=== PATIENT | female | born 1950 | race Caucasian/White ===

== ENCOUNTER → 2018-03-04 11:58 | Outpatient (CLI) | payer MEDICARE, SELFPAY ==
[2018-03-04 14:12] LABS: Absolute Lymphocyte Count 1.81 X10^3/ul (0.83-4.51); Absolute Neutrophil Count 3.6 X10^3/uL (2.0-7.7); Basophil# 0.02 X10^3/uL; Basophil% 0.3 % (0-1); Eosinophil# 0.12 X10^3/uL; Hematocrit 36.8 % (37-47); Hemoglobin 11.9 g/dl (12.0-15.0); Lymphocyte # 1.81 X10^3/ul (4.0); Lymphocyte % 30.6 % (19-41); Mean Corp Hgb Conc 32.3 g/gl (32-36); Mean Corpuscular Hgb 32.6 pg (27.0-32.0); Mean Corpuscular Volume 100.8 fL (81-99); Mean Platelet Vol. 10.4 fl (6.2-12.0); Monocyte# 0.39 X10^3/uL; Monocyte% 6.6 % (0-10); Neutrophil # 3.57 X10^3/uL (2.7-7.7); Neutrophil % 60.3 % (47-70); Platelet Count 231 K/mm3 (150-450); RBC Distribution Width CV 13.7 % (11.6-14.6); Red Blood Count 3.65 M/mm3 (4.2-5.4); White Blood Count 5.9 K/mm3 (4.4-11.0)
[2018-03-04 14:13] LABS: POSITIVE COUNT NO; POSITIVE DIFFERENTIAL NO; POSITIVE MORPHOLOGY NO
[2018-03-04 14:20] LABS: CRP 4.25 mg/L (0.0-3.0)
[2018-03-04 14:21] LABS: Erythrocyte Sedimentation Rate 10 mm/hr (0-30)
== END ==
PROVIDERS: Visit Provider Specialist
DX: S72.142D Displaced intertrochanteric fracture of left femur, subsequent encounter for closed fracture with routine healing (principal)
CPT/HCPCS: 36415; 85025; 85652; 86140

== ENCOUNTER 2018-03-30 12:09 | Inpatient (IN) | payer MEDICARE, SELFPAY ==
[2018-03-16 15:22] VITALS: BP 149/74; PULSE 63; RESP 16; TEMP 36.9; O2SAT 100; BMI 27.8
--- NOTE | 2018-03-16 15:47 | SDCEKG_ITS ---
Test Reason : Blood Pressure : / mmHG Vent. Rate : 065 BPM Atrial Rate : 065 BPM P-R Int : 192 ms QRS Dur : 100 ms QT Int : 422 ms P-R-T Axes : 062 -11 049 degrees QTc Int : 438 ms Normal sinus rhythm Low voltage QRS Incomplete right bundle branch block Borderline ECG Confirmed by RICHIE HITCHCOCK, ZULY ([id number]), assignment editor VIGNESH SMITH ([id number]) on 03/18/2018 1:49:16 PM Referred By: Jesus Hernandez Confirmed By:ZULY QUIROZ MD
[2018-03-16 16:40] LABS: Anion Gap 7 (5-15); BUN 15 mg/dL (7-18); BUN/Creat Ratio 16.8 RATIO (10-20); Calcium,Total 9.4 mg/dL (8.5-10.1); Chloride 103 mmol/L (98-107); Creatinine, Serum 0.89 mg/dL (0.55-1.02); EST Glomerular Filtration Rate 66 mL/min (>60); Est Glom Filt Rate - Afr Amer 80 mL/min (>60); Estimated Creatinine Clearance 53.68 ml/min; Glucose 84 mg/dL (74-106); Potassium 3.7 mmol/L (3.5-5.1); Sodium Level 139 mmol/L (136-145)
--- NOTE | 2018-03-23 13:04 | CASEMGMT ---
SW called pt at home as pt is scheduled for a left hip replacement on 03/30/[address] Hernandez. Pt lives home w/ in a one story home. Pt is independent with most ADL's, uses a cane, her does help her with taking a shower. Pt has a bench in the shower, she also does have a walker at home. Pt anticipates returning home w/the assist of her at discharge, and go to outpt PT at [facility]. Pt states her can take her to appointments. Pt asked about home health care for therapy. SW explained that if she can get out to therapy and has a way to get there, her surgeon would likely prefer for her to go to outpt therapy. SW explained that if pt is having a difficult time or once she is here after surgery it seems like it will be too difficult to get to outside appts, SW/CM can look into home health care for pt. Pt states understanding. SW/CM to follow up w/pt once here, postoperatively, to confirm discharge plan or make any changes that are needed. ANNA Grajeda, PHOSPHORUS PROCESSING SUPERVISOR
[2018-03-30] VITALS (10 sets, daily range): BP systolic 90–143; BP diastolic 43–89; PULSE 72–115; RESP 14–18; TEMP 36–36.8; O2SAT 93–100; BMI 27.8; BMI 27.6
[2018-03-30] MEDS: oxyCODONE HCl Cr 10 MG Tablet PO (13:08)
[2018-03-30] MEDS: Acetaminophen 500 MG Tablet 1000 MG PO ×2 (13:09→21:19)
[2018-03-30] MEDS: Celecoxib 200 MG Capsule 400 MG PO (13:09)
[2018-03-30] MEDS: Cefazolin 2 GM in 0.9% Normal Saline 100 ML IV (14:41)
--- NOTE | 2018-03-30 17:08 | PCM.OPRPT ---
Report of Operation Date of Procedure: 03/30/18 Pre-Operative Diagnosis: Left intertrochanteric malunion with secondary osteoarthritis of the hip Post-Operative Diagnosis: Left intertrochanteric malunion with secondary osteoarthritis of the hip Surgery/Procedure Performed:: Conversion of previous hip surgery to left total hip replacement Description of Surgical Findings:: Stable hip with equal leg lengths appliquer zigzag: Jeff Mohr Type of Anesthesia:: Spinal Anesthesiologist: Leon Burgos Special Medications: 600 mg clindamycin, 1 g TXA at incision, 1 g TXA closure, 10 mg Decadron, joint cocktail (5 mg Duramorph, 30 mL of 0.5% Ropivicaine, 1000 units of epinephrine, 30 mg of Toradol) Specimen's removed: 3 separate specimens were sent to microbiology Estimated Blood Loss (mL): 300 Fluids Replaced: 1200 mL crystalloid Description of Procedure: Findings: Adequate reduction with stability of the hip and equal leg lengths measured intraoperatively. Components used: 1. Whipple judaism modular conical 16mm by 155 mm stem, Kory judaism modular 19 mm +10 mm cone body 2. Kory trident 52 mm acetabular shell 2 screws 3. Whipple X3 polyethylene liner, for MDM 42E 4. Kory Biolox delta 28 mm, 0 mm neck femoral head 5. Whipple MDM liner alpha code E Brief history operative indications: 67-year-old female who had a intertrochanteric fracture with subsequent malunion and osteoarthritis of the hip with developed leg length discrepancy. Risks and benefits were discussed with the patient which included but were not limited to blood loss, DVTs, PEs, infection, neurovascular damage, and dislocation. In light of all this patient did agree to proceed with a version to left total hip arthroplasty. Procedure: On the date of procedure the patient's L hip was marked in the preoperative area. Patient was then taken back to the operating room where anesthesia assumed control of the C-spine and airway and administered anesthetic. Patient was transferred to the operating table and placed in the lateral decubitus position with the affected hip up. The patient was secured in the bed with the lateral positioners and leg lengths were checked. The L lower extremity was then prepped out in a sterile fashion using chlorhexidine while the surgeon scrubbed. Upon reentering the room the L lower extremity was draped in the standard orthopedic fashion and the incision was marked. A timeout was called and everyone agreed upon the side, the site, the procedure be performed, antibiotics given, and patient's identity. At this time incision was made through skin, subcutaneous tissue, and fat down to fascia. The fascia was then incised and a Charley retractor was placed. First we worked distally to identify the plate. The vastus lateralis was lifted anteriorly. The 3 screws in the plate were identified and removed. The machine screw was removed from the lag screw. Plate was then lifted off the bone and removed. Lag screw was then removed. Culture was taken from around the plate as well as in the femoral head. The soft tissue was then cleared from the posterior external rotators and the piriformis was identified. Piriformis was taken down and tagged. The remainder of the short external rotators were taken down. Capsulotomy was made and the posterior capsule was tagged. The retractors were then placed inside the capsule. The femoral neck was identified and a cleanup cut was made. At this time a power corkscrew was used to remove the femoral head. At this time all bony debris was removed from the acetabulum. Attention was then turned to the femur where the proximal femur was appropriately exposed using a persaud retractor. The gambling box person was used to remove the lateral bone. Canal finder was used to verify the canal. The proximal femoral femur was then sequentially reamed to a size 16 x 155 reamer which had an appropriate fit. The stem was then impacted into place. We then reamed the proximal portion of the femur to a 19 mm body. Our attention was then directed to the acetabulum and the anterior retractor was placed and a Gelpi was used to retract the posterior capsule superiorly. All soft tissue debris was removed from the pulvinar and labrum of the joint. The acetabulum was then sequentially reamed to 51 millimeters. At this time a and 52 mm Whipple titanium cup was opened and impacted into place. Once it was securely fastened our attention was again turned towards the femur and the the 19 mm +10 mm body was impacted into place in the appropriate anteversion. Appropriate head with 0 mm offset was trialed, in order to obtain the appropriate leg length we sequentially trialed reducing and dislocating the hip throughout the process to find the appropriate length and stability. The hip was properly reduced using traction and external rotation. Stability was checked with the appropriate amount of shuck, no impingement with external rotation, and stable at 90? flexion and 90? internal rotation. Leg lengths were checked and were found to be equal on the table. Once the hip was determined to be stable the trial components were dislocated and to bone screws were placed in the safe zone of the acetabular component. Once it was securely fastened down the MDM liner was placed and security was verified. The proximal femur was again exposed and the components were removed from the wound. The final components were verified and opened. The wound was copiously irrigated out with normal saline. The acetabulum was checked for any residual debris. The final components were placed and impacted. Traction and external rotation were again used to reduce the hip. After adequate reduction the hip remained stable with appropriate leg lengths. The wound was then copiously irrigated with normal saline once more, and hemostasis was obtained. The sciatic nerve was carefully examined no injury was noted. The posterior capsule and piriformis were not repairable previous contractures malunion. Closure was then done using #1 Vicryl to close the fascia. A 2-0 Vicryl interrupted sutures were used to close the subcutaneous skin. Skin mala were used for final skin closure. A sterile dressing was placed. Patient was awakened by anesthesia and transferred to the [facility]. Patient was then transferred to the PACU for recovery. Postoperative plan: Patient will get 24 hours postop antibiotics. Patient will get in-house physical therapy and will be weight-bear as tolerated. Patient will follow up in office in 2 weeks for a wound check and x-rays. During the course of the procedure the physician customer service assistant played a vital role. His intimate knowledge of my steps in the procedure aided in safe and expedient completion of the procedure. The PA played a vital rolls in positioning particularly in obtaining the appropriate lateral decubitus positioning. The PA was also vital in the retraction of soft tissues during the exposure and especially the femoral work as this is a vital part of the procedure to prevent complications and fractures. The PA was also vital and protecting soft tissues during times of bony cuts and reaming. He also played a vital role in closure with my direct supervision. The PA was also important during reduction and dislocation of the joint and trials intraoperatively. - Complications None - Admit VTE Documentation VTE Present on Admission: No VTE Mechan Device Prophylaxis: SCD's, Thigh High JORDYN Hose VTE Pharm Prophylaxis ordered?: Yes
--- NOTE | 2018-03-30 17:16 | OP.PCM_ITS ---
Report of Operation Date of Procedure: 03/30/18 Pre-Operative Diagnosis: Left intertrochanteric malunion with secondary osteoarthritis of the hip Post-Operative Diagnosis: Left intertrochanteric malunion with secondary osteoarthritis of the hip Surgery/Procedure Performed:: Conversion of previous hip surgery to left total hip replacement Description of Surgical Findings:: Stable hip with equal leg lengths air quality chemist: Jeff Mohr Type of Anesthesia:: Spinal Anesthesiologist: Leon Burgos Special Medications: 600 mg clindamycin, 1 g TXA at incision, 1 g TXA closure, 10 mg Decadron, joint cocktail (5 mg Duramorph, 30 mL of 0.5% Ropivicaine, 1000 units of epinephrine, 30 mg of Toradol) Specimen's removed: 3 separate specimens were sent to microbiology Estimated Blood Loss (mL): 300 Fluids Replaced: 1200 mL crystalloid Description of Procedure: Findings: Adequate reduction with stability of the hip and equal leg lengths measured intraoperatively. Components used: 1. Cumming bahai modular conical 16mm by 155 mm stem, Kory bahai modular 19 mm +10 mm cone body 2. Kory trident 52 mm acetabular shell 2 screws 3. Cumming X3 polyethylene liner, for MDM 42E 4. Kory Biolox delta 28 mm, 0 mm neck femoral head 5. Cumming MDM liner alpha code E Brief history operative indications: 67-year-old female who had a intertrochanteric fracture with subsequent malunion and osteoarthritis of the hip with developed leg length discrepancy. Risks and benefits were discussed with the patient which included but were not limited to blood loss, DVTs, PEs, infection, neurovascular damage, and dislocation. In light of all this patient did agree to proceed with a version to left total hip arthroplasty. Procedure: On the date of procedure the patient's L hip was marked in the preoperative area. Patient was then taken back to the operating room where anesthesia assumed control of the C-spine and airway and administered anesthetic. Patient was transferred to the operating table and placed in the lateral decubitus position with the affected hip up. The patient was secured in the bed with the lateral positioners and leg lengths were checked. The L lower extremity was then prepped out in a sterile fashion using chlorhexidine while the surgeon scrubbed. Upon reentering the room the L lower extremity was draped in the standard orthopedic fashion and the incision was marked. A timeout was called and everyone agreed upon the side, the site, the procedure be performed, antibiotics given, and patient's identity. At this time incision was made through skin, subcutaneous tissue, and fat down to fascia. The fascia was then incised and a Charley retractor was placed. First we worked distally to identify the plate. The vastus lateralis was lifted anteriorly. The 3 screws in the plate were identified and removed. The machine screw was removed from the lag screw. Plate was then lifted off the bone and removed. Lag screw was then removed. Culture was taken from around the plate as well as in the femoral head. The soft tissue was then cleared from the posterior external rotators and the piriformis was identified. Piriformis was taken down and tagged. The remainder of the short external rotators were taken down. Capsulotomy was made and the posterior capsule was tagged. The retractors were then placed inside the capsule. The femoral neck was identified and a cleanup cut was made. At this time a power corkscrew was used to remove the femoral head. At this time all bony debris was removed from the acetabulum. Attention was then turned to the femur where the proximal femur was appropriately exposed using a persaud retractor. The box maker paperboard was used to remove the lateral bone. Canal finder was used to verify the canal. The proximal femoral femur was then sequentially reamed to a size 16 x 155 reamer which had an appropriate fit. The stem was then impacted into place. We then reamed the proximal portion of the femur to a 19 mm body. Our attention was then directed to the acetabulum and the anterior retractor was placed and a Gelpi was used to retract the posterior capsule superiorly. All soft tissue debris was removed from the pulvinar and labrum of the joint. The acetabulum was then sequentially reamed to 51 millimeters. At this time a and 52 mm Cumming titanium cup was opened and impacted into place. Once it was securely fastened our attention was again turned towards the femur and the the 19 mm +10 mm body was impacted into place in the appropriate anteversion. Appropriate head with 0 mm offset was trialed, in order to obtain the appropriate leg length we sequentially trialed reducing and dislocating the hip throughout the process to find the appropriate length and stability. The hip was properly reduced using traction and external rotation. Stability was checked with the appropriate amount of shuck, no impingement with external rotation, and stable at 90? flexion and 90? internal rotation. Leg lengths were checked and were found to be equal on the table. Once the hip was determined to be stable the trial components were dislocated and to bone screws were placed in the safe zone of the acetabular component. Once it was securely fastened down the MDM liner was placed and security was verified. The proximal femur was again exposed and the components were removed from the wound. The final components were verified and opened. The wound was copiously irrigated out with normal saline. The acetabulum was checked for any residual debris. The final components were placed and impacted. Traction and external rotation were again used to reduce the hip. After adequate reduction the hip remained stable with appropriate leg lengths. The wound was then copiously irrigated with normal saline once more, and hemostasis was obtained. The sciatic nerve was carefully examined no injury was noted. The posterior capsule and piriformis were not repairable previous contractures malunion. Closure was then done using #1 Vicryl to close the fascia. A 2-0 Vicryl interrupted sutures were used to close the subcutaneous skin. Skin mala were used for final skin closure. A sterile dressing was placed. Patient was awakened by anesthesia and transferred to the [facility]. Patient was then transferred to the PACU for recovery. Postoperative plan: Patient will get 24 hours postop antibiotics. Patient will get in-house physical therapy and will be weight-bear as tolerated. Patient will follow up in office in 2 weeks for a wound check and x-rays. During the course of the procedure the physician investigative assistant played a vital role. His intimate knowledge of my steps in the procedure aided in safe and expedient completion of the procedure. The PA played a vital rolls in positioning particularly in obtaining the appropriate lateral decubitus positioning. The PA was also vital in the retraction of soft tissues during the exposure and especially the femoral work as this is a vital part of the procedure to prevent complications and fractures. The PA was also vital and protecting soft tissues during times of bony cuts and reaming. He also played a vital role in closure with my direct supervision. The PA was also important during reduction and dislocation of the joint and trials intraoperatively. - Complications None - Admit VTE Documentation VTE Present on Admission: No VTE Mechan Device Prophylaxis: SCD's, Thigh High JORDYN Hose VTE Pharm Prophylaxis ordered?: Yes
--- NOTE | 2018-03-30 18:05 | RAD_ITS ---
STUDY: X-RAY - PELVIS AND LEFT HIP REASON FOR EXAM: Female, 67 years old. Postop TECHNIQUE: Radiological exam, hip, unilateral, with pelvis when performed; 2 or 3 views. COMPARISON: 09/04/2016. FINDINGS: There is a non-specific bowel gas pattern. Postsurgical changes soft tissues adjacent to the left hip. Normal bilateral iliac wings, sacroiliac joints and visualized sacrum. Iliac crests are cut off from evaluation. Normal bilateral superior and inferior pubic rami. Normal pubic symphysis. Normal bilateral ischial tuberosities. Left hip prosthesis in place without loosening or breakage. No fracture. RAD/Hip Min 2 Views (Portable) IMPRESSION: Revision of left hip hardware. Left hip prosthesis in place. No fracture. Electronically Signed: Oleksandr Moya DO at 19:15 EDT , Service support ,
[2018-03-30] MEDS: Scopolamine 1mg/72hr Patch 1 PATCH TD (18:18)
[2018-03-30] MEDS: Ondansetron 4 MG/2 ML Vial IV (19:20)
--- NOTE | 2018-03-30 19:59 | PCM.PN.BLA ---
Progress Note Postop exam: Patient doing well left lower extremity examination 5 out of 5 dorsiflexion EHL and plantar flexion. Sensations intact light touch SP/DP/tibial nerve distributions. We will reassess in the [facility]:
--- NOTE | 2018-03-30 20:00 | PN_ITS ---
Progress Note Postop exam: Patient doing well left lower extremity examination 5 out of 5 dorsiflexion EHL and plantar flexion. Sensations intact light touch SP/DP/ tibial nerve distributions. We will reassess in the [facility]:
[2018-03-30] MEDS: Lactated Ringers 1,000 ML 125 ML IV (20:21)
[2018-03-30] MEDS: Baclofen 10 MG Tablet PO (21:18)
[2018-03-30] MEDS: Senna/Docusate Sodium 1 Tablet 2 TABLET PO (21:19)
[2018-03-30] MEDS: Gabapentin 100 MG Capsule PO (21:20)
[2018-03-30] MEDS: Atorvastatin Calcium 10 MG Tablet PO (21:20)
[2018-03-30] MEDS: Clindamycin 600 MG/50 ML BAG 100 MG IV (21:21)
--- NOTE | 2018-03-30 23:57 | PCM.PN.HOSP ---
Subjective: Consultation Reason/Chief Complaint: Left intertrochanteric malunion with secondary osteoarthritis of the hip for medical management consultation The patient is a 67 y/o F w/ PMHx: Chronic Normocytic Anemia, Neuropathy, HTN, HLD, GERD, Parkinson's disease who presents to the [facility] ED on 03/30/18 w/ history of ongoing left hip discomfort and debility w/ left intertrochanteric malunion with secondary osteoarthritis of the hip for planned L THR per Dr. Hernandez, conversion from previous hip surgery w/ prior history of fall w/ L hip fracture in 2016. Patient katie-operative had only noted mildly low BP but otherwise no acute events. Per Dr. Hernandez was evaluated post-operatively and noted LLE with appropriate flexion and extension, intact sensation. Social Hx: Lives with her spouse, former tobacco use, denies EtOH or elicit drug usage. PSurgHx: Cholecystectomy, mastectomy, carpal tunnel release to the right upper extremity, left hip ORIF. Family Hx: Father with history of arthritis, cancer, hypertension. Mother with history of cancer, hypertension, stroke. Admission Review of Systems: CONSTITUTIONAL: No weight loss, fever, chills. + weakness or fatigue. HEENT: Eyes: No visual loss, blurred vision, double vision or yellow sclerae. Ears, Nose, Throat: No hearing loss, sneezing, congestion, runny nose or sore throat. SKIN: No rash or itching, lesions, wounds. CARDIOVASCULAR: No chest pain, chest pressure or chest discomfort, palpitations, edema, orthopnea, syncopal events. RESPIRATORY: No shortness of breath, cough or sputum, wheezing, hemoptysis. GASTROINTESTINAL: No anorexia, nausea, vomiting or diarrhea, abdominal pain, melena, BRBPR. GENITOURINARY: No dysuria, frequency, urgency or retention. NEUROLOGICAL: Parkinson's disease history. No headache, dizziness, syncope, paralysis, ataxia, numbness or tingling in the extremities, change in bowel or bladder control, seizure. MUSCULOSKELETAL: + L hip pain. HEMATOLOGIC: + anemia, bleeding or bruising. LYMPHATICS: No enlarged nodes. No history of splenectomy. PSYCHIATRIC: + history of depression or anxiety. ENDOCRINOLOGIC: No reports of sweating, cold or heat intolerance. No polyuria or polydipsia. ALLERGIES: No history of asthma, hives, eczema or rhinitis. Objective: Physical Examination: General: awakens to stimuli, alert, fatigued, oriented x 3 and cooperative, seated upright in bed in no apparent distress. Skin: normal color, turgor, no icterus, cyanosis, L hip dressing in place, ice in place. HEENT: AT/NC, EOMI, PERRLA, mildly dry MM, no carotid bruits or JVD noted. Lungs: CTA bilaterally, moderate effort, mild decrease BL bases, no rales, ronchi or wheezing. Heart: Regular rate and rhythm; no gallop, rub audible. Abdomen: soft, NTTP, ND, normal BS, no HSM. Extremities: no cyanosis, clubbing, s/p L THR, see skin. Neurological: patient awake, alert, oriented x 3; cognitive function intact; pupils equally reactive to light and accomodation; cranial nerves II-XII grossly normal, moving all 4 extremities although limited LLE given recent OR L THR, strength according severely globally decreased. Psychiatric: affect appears fatigued, mildly flat, no acute evidence of depressive or anxiety feelings. Vitals/I&O's: Vital Signs Temp Pulse Resp BP Pulse Ox 97.6 F L 97 18 90/43 L 93 03/30/18 23:28 03/30/18 23:28 03/30/18 23:28 03/30/18 23:28 03/30/18 23:28 Oxygen Delivery Method Room Air Weight: 169 lb 15.622 oz Body Mass Index (BMI) 27.6 Intake and Output for Last 24 Hours 03/28/18 03/29/18 03/30/18 23:59 23:59 23:59 Intake Total 1300 / 1300 Balance 1300 / 1300 Current Medications Acetaminophen (Tylenol) 1,000 mg PO Q8 [facility] Last Admin: 03/30/18 21:19 Dose: 1,000 mg Atorvastatin Calcium (Lipitor) 10 mg PO QHS [facility] Last Admin: 03/30/18 21:20 Dose: 10 mg Baclofen (Lioresal) 10 mg PO QHS [facility] Last Admin: 03/30/18 21:18 Dose: 10 mg Cholecalciferol (Vitamin D) 500 unit PO DAILY [facility] Cyanocobalamin (Vitamin B12) 500 mcg PO DAILY@0800 [facility] Duloxetine HCl (Cymbalta) 60 mg PO DAILY [facility] Estradiol (Estrace (G)) 1 mg PO DAILY [facility] Famotidine (Pepcid) 20 mg PO DAILY [facility] Gabapentin (Neurontin) 100 mg PO TID [facility] Last Admin: 03/30/18 21:20 Dose: 100 mg Hydralazine HCl (Apresoline Iv) 10 mg IV Q4H PRN PRN PRN Reason: SBP > 160 Hydrochlorothiazide (Hydrochlorothiazide) 12.5 mg PO DAILY [facility] Lactated Ringer's () 1,000 mls @ 125 mls/hr IV .Q8H [facility] Last Admin: 03/30/18 20:21 Dose: 125 mls/hr Clindamycin Phosphate (Cleocin) 600 mg in 50 mls @ 100 mls/hr IV Q6H [facility] Stop: 03/31/18 09:59 Sodium Chloride () 1,000 mls @ 100 mls/hr IV .Q10H [facility] Stop: 03/31/18 09:44 Sodium Chloride () 500 mls @ 999 mls/hr IV .Q31M [facility] Stop: 03/31/18 00:26 Ketorolac Tromethamine (Toradol) 15 mg IV Q6H PRN PRN PRN Reason: MILD-MOD PAIN (1-5/10) Lisinopril (Zestril) 10 mg PO DAILY [facility] Loratadine (Claritin) 10 mg PO DAILY PRN PRN Reason: ALLERGIES Morphine Sulfate () 2 - 4 mg IV Q2H PRN PRN PRN Reason: SEVERE PAIN (6-10/10) Morphine Sulfate () 2 - 4 mg IV Q2H PRN PRN PRN Reason: SEVERE PAIN (6-10/10) Nutritional Formula (Lactose Free) (Ensure Clear) 120 ml PO TIDCM [facility] Last Admin: 03/30/18 20:58 Dose: Not Given Ondansetron HCl (Zofran) 4 mg IV Q8H PRN PRN PRN Reason: NAUSEA Last Admin: 03/30/18 19:20 Dose: 4 mg Oxycodone HCl (Oxyir) 5 - 10 mg PO Q4H PRN PRN PRN Reason: MOD-SEVERE PAIN (4-10/10) Pantoprazole Sodium (Protonix) 20 mg PO DAILY [facility] Promethazine HCl (Phenergan) 12.5 mg IM Q6H PRN PRN; Protocol PRN Reason: NAUSEA/VOMITING Rivaroxaban (Xarelto) 10 mg PO DAILY@0600 [facility] Senna/Docusate Sodium (Senokot-S, Katie-Colace) 2 tablet PO BID [facility] Last Admin: 03/30/18 21:19 Dose: 2 tablet Sodium Chloride () 5 - 30 ml IV UD PRN PRN Reason: SALINE FLUSH Tolterodine Tartrate (Detrol La) 2 mg PO DAILY [facility] Medical Necessity - Tobacco Use Smoking Status: Former smoker Tobacco Use: Cigarettes Assessment/Plan All Active Problems Thrombocytopenia (Acute) Constipation (Acute) Hypokalemia (Acute) Hypomagnesemia (Acute) Anemia due to blood loss, acute (Acute) Fracture of left tibial plateau (Acute) Fibula fracture (Acute) Thermal burn (Acute) Closed left hip fracture (Acute) The patient is a 67 y/o F w/ PMHx: Chronic Normocytic Anemia, Neuropathy, HTN, HLD, GERD, Parkinson's disease who presents to the [facility] ED on 03/30/18 w/ history of ongoing left hip discomfort and debility w/ left intertrochanteric malunion with secondary osteoarthritis of the hip for planned L THR per Dr. Hernandez, conversion from previous hip surgery w/ prior history of fall w/ L hip fracture in 2016. (1) Severe Osteoarthritis, left intertrochanteric malunion with secondary osteoarthritis of the hip: Admitted per Dr. Hernandez, 03/30/[address] Hernandez, conversion from previous hip surgery, post-operative pain management, bowel regimen, DVT Prophylaxis, PT/OT/CM per Orthopedic surgery discretion. (2) Hypotension, Post-operatively: BP stable low, will place hold parameters on her HTN regimen, given bolus NS 500 cc x 1 and initiate low MIVFs x 1L. Fall precautions. Additional Co-morbidities: Parkinson's disease: Will continue home sinemet regimen, fall precautions, therapies ordered per Orthopedic surgery. Chronic normocytic anemia: Preoperative hemoglobin 11.9, postoperative hemoglobin to be obtained in a.m. Hypertension: Continue home regimen including hydrochlorothiazide, lisinopril w/ hold parameters given mildly low BP, PRN hydralazine. Hyperlipidemia: Continue home statin regimen. Anxiety and Depression: Continue home Cymbalta regimen. DVT prophylaxis: SCDs, Xarelto per orthopedic surgery discretion. Code Visit Inpatient E&M: 90711 [facility] Hosp L3
[2018-03-31] VITALS (11 sets, daily range): BP systolic 83–114; BP diastolic 40–62; PULSE 86–110; RESP 16–18; TEMP 36.5–37.1; O2SAT 90–100
[2018-03-31] MEDS: Ketorolac 15 MG/ML Vial IV (00:20)
[2018-03-31] MEDS: 0.9% Normal Saline 1,000 ML 100 ML IV (01:39)
[2018-03-31] MEDS: oxyCODONE 5 MG Tablet PO (02:01)
[2018-03-31] MEDS: Clindamycin 600 MG/50 ML BAG 100 MG IV ×2 (03:54→10:07)
[2018-03-31] MEDS: Acetaminophen 500 MG Tablet 1000 MG PO ×3 (06:01→21:07)
[2018-03-31] MEDS: Rivaroxaban 10 MG Tablet PO (06:01)
[2018-03-31] MEDS: Gabapentin 100 MG Capsule PO ×3 (06:01→21:07)
[2018-03-31] MEDS: Carbidopa/Levodopa 25/100 Tablet PO ×3 (06:09→16:04)
[2018-03-31 06:22] LABS: Anion Gap 8 (5-15); BUN 22 mg/dL (7-18); BUN/Creat Ratio 19.3 RATIO (10-20); Chloride 112 mmol/L (98-107); Creatinine, Serum 1.14 mg/dL (0.55-1.02); EST Glomerular Filtration Rate 50 mL/min (>60); Est Glom Filt Rate - Afr Amer 61 mL/min (>60); Estimated Creatinine Clearance 41.91 ml/min; Glucose 94 mg/dL (74-106); Potassium 4.5 mmol/L (3.5-5.1); Sodium Level 144 mmol/L (136-145)
[2018-03-31 06:32] LABS: Hemoglobin 8.9 g/dl (12.0-15.0); Mean Corp Hgb Conc 31.8 g/gl (32-36); Mean Corpuscular Hgb 31.4 pg (27.0-32.0); Mean Corpuscular Volume 98.9 fL (81-99); Mean Platelet Vol. 9.7 fl (6.2-12.0); Platelet Count 178 K/mm3 (150-450); RBC Distribution Width CV 13.8 % (11.6-14.6); RBC Distribution Width SD 50.1 fl (35.1-43.9); Red Blood Count 2.83 M/mm3 (4.2-5.4); White Blood Count 7.4 K/mm3 (4.4-11.0)
[2018-03-31 06:37] LABS: Scan Indicated on CBC? Y/N NO
--- NOTE | 2018-03-31 06:48 | PN.ORTHO_ITS ---
Subjective: The patient was resting in bed upon examination. Patient denies any chest pain , shortness of breath, dizziness, lightheadedness, nausea or vomiting, or calf pain. Pain is controlled on medications. Patient states she feels very fatigued/tired. Nursing states overnight she has been given 2 boluses of IV fluids due to hypotension. Dr. Doshi has been involved helping manage. Objective: Vital signs stable and afebrile. Patient is able to plantarflex and dorsiflex actively. Sensation is intact to light touch to saphenous, sural, superficial and deep peroneal, and tibial distribution. Dressing is clean dry and intact. Negative Homans bilaterally, negative signs and symptoms of DVT. - Physical Exam General: Alert, Oriented x3, Cooperative Vital Signs Temp Pulse Resp BP Pulse Ox 97.8 F 89 18 91/46 L 99 03/31/18 05:48 03/31/18 05:48 03/31/18 05:48 03/31/18 05:48 03/31/18 05:48 Oxygen Flow Rate (L/min) 1 Oxygen Delivery Method Nasal Cannula Weight: 77.1 kg Body Mass Index (BMI) 27.6 Intake and Output for Last 24 Hours 03/29/18 03/30/18 03/31/18 23:59 23:59 23:59 Intake Total 1300 / 1300 3108 / 3108 Output Total 400 / 400 Balance 1300 / 1300 2708 / 2708 Laboratory Tests Past 24 Hrs 03/31/18 03/31/18 05:44 05:44 WBC 7.4 RBC 2.83 L Hgb 8.9 L Hct 28.0 L MCV 98.9 MCH 31.4 MCHC 31.8 L RDW 13.8 RDW Differential 50.1 H Plt Count 178 MPV 9.7 Sodium 144 Potassium 4.5 Chloride 112 H Carbon Dioxide 24.0 Anion Gap 8 BUN 22 H Creatinine 1.14 H Estim Creat Clear Calc 41.91 Est GFR (MDRD) Af Amer 61 Est GFR (MDRD) Non-Af 50 L BUN/Creatinine Ratio 19.3 Glucose 94 Calcium 7.0 L Medical Necessity - Tobacco Use Smoking Status: Former smoker Tobacco Use: Cigarettes Assessment/Plan All Active Problems Thrombocytopenia (Acute) Constipation (Acute) Hypokalemia (Acute) Hypomagnesemia (Acute) Anemia due to blood loss, acute (Acute) Fracture of left tibial plateau (Acute) Fibula fracture (Acute) Thermal burn (Acute) Closed left hip fracture (Acute) 1. S/P conversion of previous hip surgery to a left total hip arthroplasty POD #1 2. Continue Pain Medications: Tylenol and OxyIR 3. DVT Prophylaxis: Xarelto 4. PT/OT: Weightbearing as tolerated 5. H & H: 8.9/28.0, patient currently is hypotensive and feeling fatigue/ tired. Patient denies any dizziness or lightheadedness. 6. Encouraged Incentive Spirometry 7. Continue postoperative medical management per medicine 8. Hypotensive: Currently 91/46, patient has received 2 boluses overnight of IV fluids. Patient has also been straight cathed. Medications are being managed by medicine. Patient has not been out of bed due to blood pressure. 8. Disposition: Anticipate discharge home with outpatient physical therapy when medically stable.
--- NOTE | 2018-03-31 09:56 | PCM.PN.HOSP ---
Subjective: Nauseated this AM. Vitals/I&O's: Vital Signs Temp Pulse Resp BP Pulse Ox 36.6 C 89 18 91/46 L 99 03/31/18 05:48 03/31/18 05:48 03/31/18 05:48 03/31/18 05:48 03/31/18 05:48 Oxygen Flow Rate (L/min) 2 Oxygen Delivery Method Nasal Cannula Weight: 77.1 kg Body Mass Index (BMI) 27.6 Intake and Output for Last 24 Hours 03/29/18 03/30/18 03/31/18 23:59 23:59 23:59 Intake Total 1300 / 1300 3108 / 3108 Output Total 400 / 400 Balance 1300 / 1300 2708 / 2708 General: Alert, Cooperative, No apparent distress HEENT: Atraumatic, Normocephalic Neck: No Nodes, Thyroid Normal Size and Texture Lungs: Clear to auscultation, Normal air movement, No rhonchi, No wheeze Cardiovascular: Regular rate, Regular Rhythm, Normal S1, Normal S2, No murmurs Abdomen: Bowel Sounds Present, Soft, Non Tender, Non-Distended Extremities: No edema, No Calf Tenderness Laboratory Results 03/31/18 05:44: WBC 7.4, RBC 2.83 L, Hgb 8.9 L, Hct 28.0 L, MCV 98.9, MCH 31.4, MCHC 31.8 L, RDW 13.8, RDW Differential 50.1 H, Plt Count 178, MPV 9.7 03/31/18 05:44: Sodium 144, Potassium 4.5, Chloride 112 H, Carbon Dioxide 24.0, Anion Gap 8, BUN 22 H, Creatinine 1.14 H, Estim Creat Clear Calc 41.91, Est GFR (MDRD) Af Amer 61, Est GFR (MDRD) Non-Af 50 L, BUN/Creatinine Ratio 19.3, Glucose 94, Calcium 7.0 L Current Medications Acetaminophen (Tylenol) 1,000 mg PO Q8 [facility] Last Admin: 03/31/18 06:01 Dose: 1,000 mg Atorvastatin Calcium (Lipitor) 10 mg PO QHS [facility] Last Admin: 03/30/18 21:20 Dose: 10 mg Baclofen (Lioresal) 10 mg PO QHS [facility] Last Admin: 03/30/18 21:18 Dose: 10 mg Carbidopa/Levodopa (Sinemet) 0.5 tablet PO TIDAC [facility] Last Admin: 03/31/18 06:09 Dose: 0.5 tablet Cholecalciferol (Vitamin D) 500 unit PO DAILY [facility] Cyanocobalamin (Vitamin B12) 500 mcg PO DAILY@0800 [facility] Duloxetine HCl (Cymbalta) 60 mg PO DAILY [facility] Estradiol (Estrace (G)) 1 mg PO DAILY [facility] Famotidine (Pepcid) 20 mg PO DAILY [facility] Gabapentin (Neurontin) 100 mg PO TID [facility] Last Admin: 03/31/18 06:01 Dose: 100 mg Hydralazine HCl (Apresoline Iv) 10 mg IV Q4H PRN PRN PRN Reason: SBP > 160 Hydrochlorothiazide (Hydrochlorothiazide) 12.5 mg PO DAILY [facility] Lactated Ringer's () 1,000 mls @ 125 mls/hr IV .Q8H [facility] Last Admin: 03/31/18 03:59 Dose: Not Given Clindamycin Phosphate (Cleocin) 600 mg in 50 mls @ 100 mls/hr IV Q6H [facility] Stop: 03/31/18 09:59 Last Admin: 03/31/18 03:54 Dose: 100 mls/hr Sodium Chloride () 1,000 mls @ 100 mls/hr IV .Q10H [facility] Stop: 03/31/18 10:25 Last Admin: 03/31/18 01:39 Dose: 100 mls/hr Ketorolac Tromethamine (Toradol) 15 mg IV Q6H PRN PRN PRN Reason: MILD-MOD PAIN (1-5/10) Last Admin: 03/31/18 00:20 Dose: 15 mg Lisinopril (Zestril) 10 mg PO DAILY [facility] Loratadine (Claritin) 10 mg PO DAILY PRN PRN Reason: ALLERGIES Morphine Sulfate () 2 - 4 mg IV Q2H PRN PRN PRN Reason: SEVERE PAIN (6-10/10) Morphine Sulfate () 2 - 4 mg IV Q2H PRN PRN PRN Reason: SEVERE PAIN (6-10/10) Nutritional Formula (Lactose Free) (Ensure Clear) 120 ml PO TIDCM [facility] Last Admin: 03/30/18 20:58 Dose: Not Given Ondansetron HCl (Zofran) 4 mg IV Q8H PRN PRN PRN Reason: NAUSEA Last Admin: 03/30/18 19:20 Dose: 4 mg Oxycodone HCl (Oxyir) 5 - 10 mg PO Q4H PRN PRN PRN Reason: MOD-SEVERE PAIN (4-10/10) Last Admin: 03/31/18 02:01 Dose: 5 mg Pantoprazole Sodium (Protonix) 20 mg PO DAILY [facility] Promethazine HCl (Phenergan) 12.5 mg IM Q6H PRN PRN; Protocol PRN Reason: NAUSEA/VOMITING Rivaroxaban (Xarelto) 10 mg PO DAILY@0600 [facility] Last Admin: 03/31/18 06:01 Dose: 10 mg Senna/Docusate Sodium (Senokot-S, Soledad-Colace) 2 tablet PO BID [facility] Last Admin: 03/30/18 21:19 Dose: 2 tablet Sodium Chloride () 5 - 30 ml IV UD PRN PRN Reason: SALINE FLUSH Tolterodine Tartrate (Detrol La) 2 mg PO DAILY [facility] Medical Necessity - Tobacco Use Smoking Status: Former smoker Tobacco Use: Cigarettes Assessment/Plan All Active Problems Thrombocytopenia (Acute) Constipation (Acute) Hypokalemia (Acute) Hypomagnesemia (Acute) Anemia due to blood loss, acute (Acute) Fracture of left tibial plateau (Acute) Fibula fracture (Acute) Thermal burn (Acute) Closed left hip fracture (Acute) 1. Nausea Unclear etiology Last narcotic was Oxycodone at 0200 zofran PRN consider imaging if worse, persists or develops abd pain 2. s/p Left total hip replacement POD #1 mgmt per ortho 3. DVT proph: per ortho: Xarelto Code Visit Inpatient E&M: 79289 Subs Hosp L2
--- NOTE | 2018-03-31 10:01 | PN_ITS ---
Subjective: Nauseated this AM. Vitals/I&O's: Vital Signs Temp Pulse Resp BP Pulse Ox 36.6 C 89 18 91/46 L 99 03/31/18 05:48 03/31/18 05:48 03/31/18 05:48 03/31/18 05:48 03/31/18 05:48 Oxygen Flow Rate (L/min) 2 Oxygen Delivery Method Nasal Cannula Weight: 77.1 kg Body Mass Index (BMI) 27.6 Intake and Output for Last 24 Hours 03/29/18 03/30/18 03/31/18 23:59 23:59 23:59 Intake Total 1300 / 1300 3108 / 3108 Output Total 400 / 400 Balance 1300 / 1300 2708 / 2708 General: Alert, Cooperative, No apparent distress HEENT: Atraumatic, Normocephalic Neck: No Nodes, Thyroid Normal Size and Texture Lungs: Clear to auscultation, Normal air movement, No rhonchi, No wheeze Cardiovascular: Regular rate, Regular Rhythm, Normal S1, Normal S2, No murmurs Abdomen: Bowel Sounds Present, Soft, Non Tender, Non-Distended Extremities: No edema, No Calf Tenderness Laboratory Results 03/31/18 05:44: WBC 7.4, RBC 2.83 L, Hgb 8.9 L, Hct 28.0 L, MCV 98.9, MCH 31.4, MCHC 31.8 L, RDW 13.8, RDW Differential 50.1 H, Plt Count 178, MPV 9.7 03/31/18 05:44: Sodium 144, Potassium 4.5, Chloride 112 H, Carbon Dioxide 24.0, Anion Gap 8, BUN 22 H, Creatinine 1.14 H, Estim Creat Clear Calc 41.91, Est GFR (MDRD) Af Amer 61, Est GFR (MDRD) Non-Af 50 L, BUN/Creatinine Ratio 19.3, Glucose 94, Calcium 7.0 L Current Medications Acetaminophen (Tylenol) 1,000 mg PO Q8 [facility] Last Admin: 03/31/18 06:01 Dose: 1,000 mg Atorvastatin Calcium (Lipitor) 10 mg PO QHS [facility] Last Admin: 03/30/18 21:20 Dose: 10 mg Baclofen (Lioresal) 10 mg PO QHS [facility] Last Admin: 03/30/18 21:18 Dose: 10 mg Carbidopa/Levodopa (Sinemet) 0.5 tablet PO TIDAC [facility] Last Admin: 03/31/18 06:09 Dose: 0.5 tablet Cholecalciferol (Vitamin D) 500 unit PO DAILY [facility] Cyanocobalamin (Vitamin B12) 500 mcg PO DAILY@0800 [facility] Duloxetine HCl (Cymbalta) 60 mg PO DAILY [facility] Estradiol (Estrace (G)) 1 mg PO DAILY [facility] Famotidine (Pepcid) 20 mg PO DAILY [facility] Gabapentin (Neurontin) 100 mg PO TID [facility] Last Admin: 03/31/18 06:01 Dose: 100 mg Hydralazine HCl (Apresoline Iv) 10 mg IV Q4H PRN PRN PRN Reason: SBP > 160 Hydrochlorothiazide (Hydrochlorothiazide) 12.5 mg PO DAILY [facility] Lactated Ringer's () 1,000 mls @ 125 mls/hr IV .Q8H [facility] Last Admin: 03/31/18 03:59 Dose: Not Given Clindamycin Phosphate (Cleocin) 600 mg in 50 mls @ 100 mls/hr IV Q6H [facility] Stop: 03/31/18 09:59 Last Admin: 03/31/18 03:54 Dose: 100 mls/hr Sodium Chloride () 1,000 mls @ 100 mls/hr IV .Q10H [facility] Stop: 03/31/18 10:25 Last Admin: 03/31/18 01:39 Dose: 100 mls/hr Ketorolac Tromethamine (Toradol) 15 mg IV Q6H PRN PRN PRN Reason: MILD-MOD PAIN (1-5/10) Last Admin: 03/31/18 00:20 Dose: 15 mg Lisinopril (Zestril) 10 mg PO DAILY [facility] Loratadine (Claritin) 10 mg PO DAILY PRN PRN Reason: ALLERGIES Morphine Sulfate () 2 - 4 mg IV Q2H PRN PRN PRN Reason: SEVERE PAIN (6-10/10) Morphine Sulfate () 2 - 4 mg IV Q2H PRN PRN PRN Reason: SEVERE PAIN (6-10/10) Nutritional Formula (Lactose Free) (Ensure Clear) 120 ml PO TIDCM [facility] Last Admin: 03/30/18 20:58 Dose: Not Given Ondansetron HCl (Zofran) 4 mg IV Q8H PRN PRN PRN Reason: NAUSEA Last Admin: 03/30/18 19:20 Dose: 4 mg Oxycodone HCl (Oxyir) 5 - 10 mg PO Q4H PRN PRN PRN Reason: MOD-SEVERE PAIN (4-10/10) Last Admin: 03/31/18 02:01 Dose: 5 mg Pantoprazole Sodium (Protonix) 20 mg PO DAILY [facility] Promethazine HCl (Phenergan) 12.5 mg IM Q6H PRN PRN; Protocol PRN Reason: NAUSEA/VOMITING Rivaroxaban (Xarelto) 10 mg PO DAILY@0600 [facility] Last Admin: 03/31/18 06:01 Dose: 10 mg Senna/Docusate Sodium (Senokot-S, Soledad-Colace) 2 tablet PO BID [facility] Last Admin: 03/30/18 21:19 Dose: 2 tablet Sodium Chloride () 5 - 30 ml IV UD PRN PRN Reason: SALINE FLUSH Tolterodine Tartrate (Detrol La) 2 mg PO DAILY [facility] Medical Necessity - Tobacco Use Smoking Status: Former smoker Tobacco Use: Cigarettes Assessment/Plan All Active Problems Thrombocytopenia (Acute) Constipation (Acute) Hypokalemia (Acute) Hypomagnesemia (Acute) Anemia due to blood loss, acute (Acute) Fracture of left tibial plateau (Acute) Fibula fracture (Acute) Thermal burn (Acute) Closed left hip fracture (Acute) 1. Nausea * Unclear etiology * Last narcotic was Oxycodone at 0200 * zofran PRN * consider imaging if worse, persists or develops abd pain 2. s/p Left total hip replacement * POD #1 * mgmt per ortho 3. DVT proph: * per ortho: Xarelto Code Visit Inpatient E&M: 02153 Subs Hosp L2
[2018-03-31] MEDS: Senna/Docusate Sodium 1 Tablet 2 TABLET PO ×2 (10:05→21:07)
[2018-03-31] MEDS: Ondansetron 4 MG/2 ML Vial IV (10:06)
[2018-03-31] MEDS: Estradiol 1 MG Tablet PO (10:06)
[2018-03-31] MEDS: Tolterodine Tartrate 2 MG CAP.SA PO (10:06)
[2018-03-31] MEDS: Famotidine 20 MG Tablet PO (10:06)
[2018-03-31] MEDS: Cyanocobalamin 500 MCG Tablet PO (10:07)
[2018-03-31] MEDS: Pantoprazole Sodium 20 MG Tablet PO (10:07)
[2018-03-31] MEDS: DULoxetine Hcl 60 MG Capsule PO (10:07)
[2018-03-31] MEDS: Lactated Ringers 1,000 ML 125 ML IV (10:16)
--- NOTE | 2018-03-31 14:45 | CASEMGMT ---
RODNEY JONES Face to Face with patient for initial transition planning/care coordination assessment. RODNEY JONES introduced self and role at [facility]. Patient sitting in chair, alert and oriented. Patient willing to participate in assessment and is able to answer all questions appropriately. Care providers, pharmacy, and demographics verified. Patient lives with in ranch style house with 4 steps with railing to enter home. Patient has a walker and raised toilet seat at home. Patient wishes to discharge home and is setup with [facility] for outpatient therapy with providing transportation. Patient states she has no further needs or concerns at this time. CM to follow for discharge planning needs that may arise. Disposition Plan: Patient to discharge home with outpatient therapy, family support, and follow-up plans in place.
[2018-03-31] MEDS: Atorvastatin Calcium 10 MG Tablet PO (21:07)
[2018-03-31] MEDS: Baclofen 10 MG Tablet PO (21:07)
[2018-04-01 01:00] VITALS: BP 91/53; PULSE 97; RESP 16; TEMP 36.5; O2SAT 99
[2018-04-01 03:08] VITALS: BP 97/51; PULSE 87; RESP 16; TEMP 36.8; O2SAT 100
[2018-04-01] MEDS: Carbidopa/Levodopa 25/100 Tablet PO ×3 (06:22→16:11)
[2018-04-01] MEDS: Gabapentin 100 MG Capsule PO ×3 (06:22→21:35)
[2018-04-01] MEDS: Acetaminophen 500 MG Tablet 1000 MG PO ×3 (06:22→21:36)
--- NOTE | 2018-04-01 06:29 | PCM.PN.ORT ---
Subjective: Patient doing well. Remains hypotensive. Did have increasing heart rate last evening however heart rate is stabilized and underwent 100 at this time. Standing at bedside with assist and walker this morning. Patient did require assistance standing up from bed. She reports her pain is under control. Currently taking mostly Tylenol for pain. Did have some nausea which seems to be improving at this time. His pain or shortness of breath. No calf pain today. Objective: Post operative radiographs reveal stable well aligned total hip replacement - Physical Exam General: Alert, Oriented x3, Cooperative Extremities: - - Left lower extremity: Dressing is clean dry and intact Sensations intact to light touch saphenous, sural, superficial peroneal, deep peroneal, and tibial distributions Motors intact EHL, DF, PF calves are soft and supple Vital Signs Temp Pulse Resp BP Pulse Ox 98.2 F 87 16 97/51 L 100 04/01/18 03:08 04/01/18 03:08 04/01/18 03:08 04/01/18 03:08 04/01/18 03:08 Oxygen Flow Rate (L/min) 1 Oxygen Delivery Method Nasal Cannula Weight: 169 lb 15.622 oz Body Mass Index (BMI) 27.6 Intake and Output for Last 24 Hours 03/30/18 03/31/18 04/01/18 23:59 23:59 23:59 Intake Total 1300 / 1300 7280 / 7280 Output Total 500 / 500 1000 / 1000 Balance 1300 / 1300 6780 / 6780 -1000 / -1000 Microbiology Past 72 Hours 03/30/18 17:19 Gram Stain - Final Tissue - Hip Wound Culture - Preliminary 03/30/18 17:19 Gram Stain - Final Tissue - Hip Wound Culture - Preliminary No growth-Final to follow 03/30/18 17:19 Gram Stain - Final Tissue - Hip Wound Culture - Preliminary No growth-Final to follow Laboratory Tests Past 24 Hrs 03/31/18 05:44 WBC 7.4 RBC 2.83 L Hgb 8.9 L Hct 28.0 L MCV 98.9 MCH 31.4 MCHC 31.8 L RDW 13.8 RDW Differential 50.1 H Plt Count 178 MPV 9.7 Medical Necessity - Tobacco Use Smoking Status: Former smoker Tobacco Use: Cigarettes Assessment/Plan All Active Problems Thrombocytopenia (Acute) Constipation (Acute) Hypokalemia (Acute) Hypomagnesemia (Acute) Anemia due to blood loss, acute (Acute) Fracture of left tibial plateau (Acute) Fibula fracture (Acute) Thermal burn (Acute) Closed left hip fracture (Acute) 1. S/P conversion of previous hip surgery to a left total hip arthroplasty POD #2 2. Continue Pain Medications: Tylenol and OxyIR, limit narcotics were possible 3. DVT Prophylaxis: Xarelto 4. PT/OT: Weightbearing as tolerated 5. H & H: hemaglobin 8.9 yesterday awaiting lab work this morning. Heart rate is stable, did increase to over 100 yesterday. Likely related to intraoperative blood loss. Will transfuse as appropriate by symptoms and hemoglobin level. 6. Encouraged Incentive Spirometry 7. Continue postoperative medical management per medicine 8. Hypotensive: Currently 97/51, has fluctuated. Heart rate is stable at this time. 9. Disposition: Anticipate discharge home with outpatient physical therapy when medically stable. Plan is for patient to work with physical therapy throughout the day today with likely discharge home tomorrow if she continues to regain strength. [facility] Office:
[2018-04-01 07:39] LABS: Hematocrit 26.5 % (37-47); Hemoglobin 8.5 g/dl (12.0-15.0); Mean Corp Hgb Conc 32.1 g/gl (32-36); Mean Corpuscular Hgb 31.5 pg (27.0-32.0); Mean Corpuscular Volume 98.1 fL (81-99); Mean Platelet Vol. 9.5 fl (6.2-12.0); Platelet Count 159 K/mm3 (150-450); RBC Distribution Width CV 13.9 % (11.6-14.6); RBC Distribution Width SD 49.8 fl (35.1-43.9); White Blood Count 6.9 K/mm3 (4.4-11.0)
[2018-04-01 07:42] VITALS: O2SAT 94
[2018-04-01 07:45] LABS: Scan Indicated on CBC? Y/N NO
[2018-04-01 08:46] VITALS: BP 118/58; PULSE 94; RESP 18; TEMP 36.8; O2SAT 100
[2018-04-01] MEDS: Pantoprazole Sodium 20 MG Tablet PO (08:50)
[2018-04-01] MEDS: Senna/Docusate Sodium 1 Tablet 2 TABLET PO ×2 (08:50→21:37)
[2018-04-01] MEDS: Rivaroxaban 10 MG Tablet PO (08:50)
[2018-04-01] MEDS: Famotidine 20 MG Tablet PO (08:50)
[2018-04-01] MEDS: DULoxetine Hcl 60 MG Capsule PO (08:50)
[2018-04-01] MEDS: Cyanocobalamin 500 MCG Tablet PO (08:51)
[2018-04-01] MEDS: Tolterodine Tartrate 2 MG CAP.SA PO (08:51)
[2018-04-01] MEDS: Estradiol 1 MG Tablet PO (08:51)
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
[2018-04-01 14:08] VITALS: BP 124/53; PULSE 103; RESP 18; TEMP 36.8; O2SAT 96
[2018-04-01] MEDS: oxyCODONE 5 MG Tablet PO (16:09)
[2018-04-01 21:19] VITALS: BP 127/72; PULSE 99; RESP 16; TEMP 36.7; O2SAT 94
[2018-04-01] MEDS: Baclofen 10 MG Tablet PO (21:35)
[2018-04-01] MEDS: Atorvastatin Calcium 10 MG Tablet PO (21:36)
[2018-04-02 02:57] VITALS: BP 127/61; PULSE 94; RESP 12; TEMP 36.8; O2SAT 93
[2018-04-02] MEDS: Acetaminophen 500 MG Tablet 1000 MG PO (06:10)
[2018-04-02] MEDS: Carbidopa/Levodopa 25/100 Tablet PO (06:10)
[2018-04-02] MEDS: Gabapentin 100 MG Capsule PO (06:12)
[2018-04-02] MEDS: Rivaroxaban 10 MG Tablet PO (06:12)
[2018-04-02 06:49] LABS: Hematocrit 24.2 % (37-47); Hemoglobin 7.9 g/dl (12.0-15.0); Mean Corp Hgb Conc 32.6 g/gl (32-36); Mean Corpuscular Hgb 31.7 pg (27.0-32.0); Mean Corpuscular Volume 97.2 fL (81-99); Mean Platelet Vol. 9.8 fl (6.2-12.0); Platelet Count 155 K/mm3 (150-450); RBC Distribution Width CV 14.1 % (11.6-14.6); RBC Distribution Width SD 49.8 fl (35.1-43.9); Red Blood Count 2.49 M/mm3 (4.2-5.4); White Blood Count 6.9 K/mm3 (4.4-11.0)
[2018-04-02 06:56] LABS: Scan Indicated on CBC? Y/N NO
[2018-04-02 07:45] VITALS: O2SAT 92
[2018-04-02 07:48] VITALS: BP 146/68; PULSE 94; RESP 18; TEMP 37.5; O2SAT 93
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
--- NOTE | 2018-04-02 08:36 | PCM.DC.THR ---
Discharge Activity: May Not Drive - while taking narcotic pain medications. May shower in (days): 0 - only if incision is dry and without drainage. Do NOT soak/submerge in tub/pool/roldan/stream/hot tub. Additional Activity Instructions:: Wear elastic stockings for 2 weeks. DO NOT use alcohol with narcotic pain medication. DO NOT make important decisions while taking narcotic medication. If you have problems with taking your medication (rash, itching, nausea, etc.) call the office at once. Call your doctor if your incision/area has: Increased Pain/ Swelling, Increased Redness, Foul Smelling Discharge Call your doctor if you observe: Fever of 101 or Higher Remove Dressing in (days):: 04-05-2018 Additional Dressing/Incision Instructions:: If incision is clean dry and intact may leave the wound open to air and continue showering. If there is continued drainage continue daily dry dressing changes and keep incision clean dry and intact until there is no drainage. Allergies/Adverse Reactions: Allergies aspirin Allergy (Verified 03/30/18 12:57) Hives Penicillins Allergy (Verified 03/30/18 12:57) Hives Medications to take at Discharge Baclofen [Lioresal] 10 mg PO QHS 04/10/16 Cholecalciferol (Vitamin D3) [Vitamin D3] 400 unit PO DAILY 04/10/16 Cyanocobalamin [Vitamin B12] 500 mcg PO DAILY@0800 04/10/16 Duloxetine HCl 60 mg PO DAILY 04/10/16 Gabapentin [Neurontin] 100 mg PO TID 04/10/16 Lisinopril [Zestril] 10 mg PO DAILY 04/10/16 Pantoprazole Sodium [Protonix] 20 mg PO DAILY 04/10/16 Simvastatin [Zocor] 20 mg PO QHS 04/10/16 Loratadine [Claritin] 10 mg PO DAILY PRN 09/03/16 Meloxicam 7.5 mg PO DAILY 09/03/16 Oxybutynin [Ditropan] 10 mg PO DAILY 09/03/16 Estradiol 1 mg PO DAILY 03/16/18 Hydrochlorothiazide 12.5 mg PO DAILY 03/16/18 Carbidopa/Levodopa 25/100 [Sinemet 25/100] 12.5 mg PO TID 03/31/18 Acetaminophen [Tylenol] 1,000 mg PO Q8 #90 tab 04/02/18 Atorvastatin Calcium [Lipitor] 10 mg PO QHS tablet 04/02/18 Doxycycline 100 mg PO BID #30 cap 04/02/18 Ensure Clear 120 ml PO TIDCM liquid 04/02/18 Famotidine [Pepcid] 20 mg PO DAILY #30 tab 04/02/18 Ferrous Sulfate 325 mg PO BIDCM #30 tab 04/02/18 Folic Acid 1 mg PO BIDCM #30 tab 04/02/18 Oxycodone [Oxyir] 5 mg PO Q4H PRN PRN 7 Days #45 tab 04/02/18 Rivaroxaban [Xarelto] 10 mg PO DAILY@0600 #11 tab 04/02/18 Senna/Docusate Sodium [Senokot-S] 2 tablet PO BID tablet 04/02/18 The following prescriptions were given: Oxycodone [Oxyir] 5 mg PO Q4H PRN PRN 7 Days #45 tab PRN Reason: Mod-Severe Pain (4-08/10) Acetaminophen [Tylenol] 1,000 mg PO Q8 #90 tab Famotidine [Pepcid] 20 mg PO DAILY #30 tab Rivaroxaban [Xarelto] 10 mg PO DAILY@0600 #11 tab Doxycycline 100 mg PO BID #30 cap Ferrous Sulfate 325 mg PO BIDCM #30 tab Folic Acid 1 mg PO BIDCM #30 tab Primary Care Physician: Chaim Lee MD [Primary Care Provider] - Please Follow Up With: Harry Cohn PA-C When: 04-14-2018
[2018-04-02] MEDS: Ferrous Sulfate 325 MG Tablet PO (08:56)
[2018-04-02] MEDS: Folic Acid 1 MG Tablet PO (08:56)
[2018-04-02] MEDS: Cyanocobalamin 500 MCG Tablet PO (08:58)
[2018-04-02] MEDS: Tolterodine Tartrate 2 MG CAP.SA PO (08:58)
[2018-04-02] MEDS: DULoxetine Hcl 60 MG Capsule PO (08:58)
[2018-04-02] MEDS: Doxycycline 100 MG CAPSULE PO (08:59)
[2018-04-02] MEDS: HYDROCHLOROTHIAZIDE 12.5 MG CAPSULE PO (08:59)
[2018-04-02] MEDS: Estradiol 1 MG Tablet PO (08:59)
[2018-04-02] MEDS: Pantoprazole Sodium 20 MG Tablet PO (08:59)
[2018-04-02] MEDS: Lisinopril 10 MG Tablet PO (09:00)
[2018-04-02] MEDS: Senna/Docusate Sodium 1 Tablet 2 TABLET PO (09:00)
[2018-04-02] MEDS: Famotidine 20 MG Tablet PO (09:00)
[2018-04-02] MEDS: oxyCODONE 5 MG Tablet PO (10:07)
[2018-04-02 10:28] VITALS: BP 146/68; PULSE 94; RESP 18; TEMP 37.5; O2SAT 93
== END 2018-04-02 10:28 | disposition home or self-care (01) | DRG 470 ==
PROVIDERS: Admitting Provider Specialist; Family Provider Student in an Organized Health Care Education/Training Program; PCP Student in an Organized Health Care Education/Training Program
PROC: 0SRB0JZ Replacement of Left Hip Joint with Synthetic Substitute, Open Approach (ICD-10-PCS; CPT 27130; principal; 2018-03-30 15:05)
DX: S72.142P Displaced intertrochanteric fracture of left femur, subsequent encounter for closed fracture with malunion (principal); M16.7 Other unilateral secondary osteoarthritis of hip; X58.XXXD Exposure to other specified factors, subsequent encounter; I10 Essential (primary) hypertension; E78.00 Pure hypercholesterolemia, unspecified; G20 Parkinson's disease; Z87.891 Personal history of nicotine dependence; I95.9 Hypotension, unspecified; E78.5 Hyperlipidemia, unspecified; Z79.899 Other long term (current) drug therapy; D64.9 Anemia, unspecified
CPT/HCPCS: 36415; 73502; 80048; 85027; 87015; 87070; 87075; 87077; 87081; 87102; 87116; 87186; 87205; 87206; 93005; 97110; 97162; 97165; 97530; 97535; 99251; J7030; J7040; J7120; G0463; J2405

== ENCOUNTER → 2020-01-05 13:14 | Outpatient (CLI) | payer MEDICARE, SELFPAY ==
--- NOTE | 2020-01-05 13:42 | US_ITS ---
STUDY: ULTRASOUND BREAST - RIGHT REASON FOR EXAM: Female, 69 years old. Abnormal screening mammogram. TECHNIQUE: Axial and longitudinal images of the RIGHT breast were performed with a high resolution ultrasound transducer. # OF IMAGES: 27 COMPARISON: Comparison is made with prior mammogram done earlier in the day. FINDINGS: RIGHT Breast: The mammographic abnormality corresponds to a 1 cm x 1.2 cm x 0.5 cm cyst at the 9:00 position of the breast at 7 cm from nipple. US/Breast Limited Unilateral IMPRESSION: The mammographic abnormality corresponds to a 1 cm x 1.2 cm x 0.5 cm cyst at the 9:00 position of the breast at 7 sinus from nipple. Routine mammographic follow-up is recommended. ASSESSMENT CATEGORY: BIRADS Category 2: Benign. A letter regarding these results will be sent to the patient by the facility within 30 days. Electronically Signed: Richard Patel, at 15:43 EST , Service support ,
--- NOTE | 2020-01-05 13:42 | BI_ITS ---
MAMMOGRAPHY - UNILATERAL DIAGNOSTIC: RIGHT BREAST REASON FOR EXAM: Female, 69 years old. Abnormal screening mammogram. PERTINENT HISTORY: Sister with breast cancer. TECHNIQUE: Digital unilateral breast joshua (3D mammographic acquisition) in the CC and MLO projections. 2-D mediolateral oblique (MLO) and craniocaudad (CC) views of the right breast were obtained. CAD: Full Field Digital Mammography with Computer Added Detection was performed. COMPARISON: Comparison is made with prior outside examination dated November 15, 2018. FINDINGS: Breast Composition: The breasts are heterogeneously dense, which may obscure small masses. There is a 1.8 cm x 1.2 cm nodule in the deep central portion of the right breast. Correlation with ultrasound is recommended. No other significant abnormalities are identified. BI/DIAG MAMM W/CAD, UNILAT IMPRESSION: 1.8 cm x 1.2 cm nodule in the deep central portion of the right breast as described. Correlation with ultrasound is recommended. ASSESSMENT CATEGORY: BIRADS Category 0: Incomplete. Need additional imaging evaluation. A letter regarding these results will be sent to the patient by the facility within 30 days. Approximately 10% of breast cancers are not detected by mammography. A normal mammogram should not delay biopsy of a clinically suspicious abnormality. Electronically Signed: Richard Patel, at 14:55 EST , Service support ,
== END ==
PROVIDERS: PCP Student in an Organized Health Care Education/Training Program; Referring Provider Student in an Organized Health Care Education/Training Program; Visit Provider Student in an Organized Health Care Education/Training Program
DX: N60.01 Solitary cyst of right breast (principal); Z80.3 Family history of malignant neoplasm of breast
CPT/HCPCS: 76642; 77061; 77065; G0279

== ENCOUNTER → 2023-03-17 | Outpatient (CLI) | payer MEDICARE, SELFPAY ==
--- NOTE | 2023-03-17 | MRI_ITS ---
STUDY: MRI CERVICAL SPINE WITHOUT CONTRAST REASON FOR EXAM: Female, 72 years old. SPONDYLOSIS TECHNIQUE: Standardized fat and water weighted pulse sequences were obtained in the sagittal and axial planes. COMPARISON: None FINDINGS: Normal foramen magnum and brainstem-cervical cord junction. Normal craniovertebral junction. Normal anterior atlantoaxial articulation. Normal odontoid process. Normal cervical lordosis. Normal vertebral bodies and posterior osseous elements. C2-3: Normal endplates. Normal disc height, signal and small central disc protrusion.. Normal central canal and intervertebral neural foramina. C3-4: Narrowed disc space and mild endplate spurring with mild bulging of the disc and broad-based right posterolateral/foraminal disc protrusion. Mild narrowing of the central canal and cord compression on the right. Severe right neural foraminal stenosis and moderate narrowing on the left secondary to disc disease and bony hypertrophy C4-5: Narrowed disc space and moderate bulging disc osteophyte complex. Narrowing of the central canal and cord compression. Severe bilateral neural foraminal stenosis secondary to bony hypertrophy. C5-6: Narrowed disc space and minor bulging disc osteophyte complex with right paracentral/posterior frontal disc protrusion. Narrowing of the central canal and compression to the right of midline. Severe bilateral neural foraminal stenosis secondary to bony hypertrophy more severe on the right. C6-7: Narrowed disc space and small left posterolateral/foraminal disc protrusion. Normal central canal.. Normal right neural foramen and severe left neuroforaminal stenosis C7-T1: Narrowed disc space and mild bulging disc. Mild narrowing of the central canal. Severe bilateral neural foraminal stenosis secondary to disc and bony hypertrophy. Normal central canal and intervertebral neural foramina. Tiny foci of increased intramedullary signal within the cord 4 5 likely due to gliosis secondary to chronic compression. Normal visualized soft tissue structures. MRI/Spine Cervical (Routine) IMPRESSION: No evidence for acute fracture or other bony pathology.. Spondylosis and multilevel spinal stenosis secondary to disc disease and bony hypertrophy with associated cord compression at C4-5 and C5-6. Findings as above Electronically Signed: Surjit Pinon MD at 21:50 EDT ,
== END | disposition home or self-care (01) ==
LOC: MRI 14:44
PROVIDERS: PCP Student in an Organized Health Care Education/Training Program; Referring Provider Clinical Nurse Specialist Acute Care; Visit Provider Clinical Nurse Specialist Acute Care
DX: M47.812 Spondylosis without myelopathy or radiculopathy, cervical region (principal)
CPT/HCPCS: 72141